=== PATIENT | male | born 1940 | race Caucasian/White ===

== ENCOUNTER 2016-12-02 11:12 | Observation (INO) | payer BC, MEDICARE ==
[~2016-12-02 11:12] MED LIST: ALBUTEROL SULF8.5 GM INH; ALBUTEROL0.83 MG/ML INH; BACTRIM DS TAB1 EAC1 PO; BACTRIM DS TAB1 EACH PO; CALCIUM + VITA1 EACH PO; COREG3.125 MG; COREG3.125 MG PO; COUMADIN PO; COUMADIN1 MG PO; COUMADIN10 MG PO; COUMADIN5 MG PO; COUMADIN6 MG; COUMADIN6 MG PO; COUMADIN7.5 MG PO; DUONEB 2.5-0.5 M3 ML IH; E-400400 UNIT; EQL FISH OIL 1,1 CA1 PO; FISH OIL 1,0001 CA; FISH OIL CONC1000 MG PO; FOLIC ACID0.4 MG PO; FOLIC ACID1 MG; FOLIC ACID1 MG PO; FUROSEMIDE40 M1 PO; GLIPIZIDE ER2.5 M1 PO; GLIPIZIDE XL2.5 MG; GLIPIZIDE XL2.5 MG PO; IPRATR-ALBUTEROL3 ML IH; KEFLEX500 MG PO; KEPPRA500 MG PO; LAMISIL250 MG PO; LASIX20 MG PO; LASIX80 MG; LASIX80 MG PO; LEVETIRACETAM1000 MG PO; LEXAPRO10 MG; LEXAPRO10 MG PO; LIPITOR20 MG; LIPITOR20 MG PO; LIPITOR40 MG PO; LISINOPRIL-HC; LISINOPRIL-HC PO; LISINOPRIL20 MG PO; LOVENOX40 MG/0.4 SQ; MONOJECT PREFIL10 M1 IJ; MULTIVITAMIN1 TAB; MULTIVITAMIN1 TAB PO; NAFCILLIN IV; NITROSTAT0.4 MG SL; NORCO 7.5/325 T1 TAB PO; OMEPRAZOLE20 M2 PO; OXYCODONE-APAP1 TAB; OXYCONTIN10 M1 PO; PHENYTOIN SODI; PHENYTOIN SODI100 MG PO; PHENYTOIN SODI200 MG PO; PRILOSEC20 MG; PRILOSEC20 MG PO; SENNA PLUS TAB1 EACH PO; SMZ-TMP DS 800-1 TAB; TERBINAFINE HC250 MG PO; VITAMIN C; VITAMIN C PO; VITAMIN D5000 UNIT PO; VITAMIN E; VITAMIN E PO; VITAMIN E1000 UNIT PO
[2016-12-02] MEDS ORDERED: BREO ELLIPTA 11 EAC1 INH (11:16)
[2016-12-02] MEDS ORDERED: PERCOCET 5-3251 EACH PO (11:16)
[2016-12-02] MEDS ORDERED: ROSUVASTATIN CA20 MG PO (11:17)
[2016-12-02] MEDS ORDERED: IPRAT-ALBUT 0.5-3 ML INH (11:17)
[2016-12-02] MEDS ORDERED: VITAMIN B-121000 MC1 PO (11:17)
[2016-12-02] MEDS ORDERED: SPIRIVA18 MC1 INH (11:17)
[2016-12-02] MEDS ORDERED: HYDROCODON-ACE1 EA16 PO (11:18)
[2016-12-02] MEDS ORDERED: FLOMAX0.4 M1 PO (11:18)
[2016-12-02] MEDS ORDERED: CYCLOBENZAPRINE10 M1 PO (11:18)
[2016-12-02] MEDS ORDERED: METOLAZONE10 M1 PO (11:19)
[2016-12-02] MEDS ORDERED: COREG3.125 M1 PO (11:19)
[2016-12-02] MEDS ORDERED: GLIPIZIDE ER2.5 MG PO (11:19)
[2016-12-02] MEDS ORDERED: POTASSIUM CHLO20 ME3 PO (11:19)
[2016-12-02] MEDS ORDERED: OMEPRAZOLE40 M2 PO (11:19)
[2016-12-02] MEDS ORDERED: ELIQUIS5 M1 PO (11:20)
[2016-12-02] MEDS ORDERED: PHENYTEK PO (11:20)
[2016-12-02] MEDS ORDERED: LASIX80 M1 PO (11:20)
[2016-12-02] MEDS ORDERED: DALIRESP500 MC1 PO (11:20)
[2016-12-02] MEDS ORDERED: LOSARTAN-HCTZ1 EAC5 PO (11:21)
[2016-12-02] MEDS ORDERED: KEPPRA500 M3 PO (11:21)
[2016-12-02] MEDS ORDERED: TEMAZEPAM PO (11:21)
[2016-12-02 12:06] LABS: BASO % 0.2 % (0-2); EOS % 2.7 % (0-7); EOSINOPHIL ABSOLUTE COUNT 0.2 tho/cmm (0.0-0.7); HCT-HEMATOCRIT 35.5 % (36.0-53.5); HGB-HEMOGLOBIN 12.3 gm/dl (13.5-17.0); IMMATURE GRANULOCYTES ABSOLUTE 0.01 tho/cmm (0-0.03); IMMATURE GRANULOCYTES PERCENT 0.1 % (0-0.3); LYMPH % 15.5 % (20-45); LYMPH ABSOLUTE COUNT 1.3 tho/cmm (0.8-4.5); MCH (MEAN CORPUSCULAR HGB) 33.4 pg (28.0-32.0); MCHC MEAN CORPUSCULAR HGB CONC 34.6 % (32.0-36.0); MCV (MEAN CELL VOLUME) 96.5 fl (82.0-96.0); MEAN PLATELET VOLUME 10.8 cmc (9.4-12.4); MONO % 7.7 % (0-12); MONOCYTE ABSOLUTE COUNT 0.6 tho/cmm (0.0-1.2); NEUTROPHIL ABSOLUTE COUNT 6.1 tho/cmm (1.6-8.0); NEUTROPHIL-AUTOMATED 6.1 tho/cmm (1.6-8.0); NEUTROPHILS % 73.8 % (40-80); PLATELET COUNT 188 tho/cmm (150-450); RED BLOOD COUNT 3.68 mil/cmm (4.40-5.70); RED CELL DISTRIBUTION WIDTH 12.7 % (12.4-16.4); WHITE BLOOD COUNT 8.3 tho/cmm (4.0-10.0)
[2016-12-02 12:18] LABS: ALBUMIN 3.5 g/dl (3.5-5.0); ALKALINE PHOSPHATASE 63 U/L (33-138); ALT/SGPT 36 U/L (12-78); ANION GAP 12 mmol/L (0-20); AST/SGOT 18 U/L (10-40); BILIRUBIN,TOTAL 0.3 mg/dl (0.0-1.5); BLOOD UREA NITROGEN 48 mg/dl (6-24); CARBON DIOXIDE-VENOUS 37 mmol/L (22-32); CHLORIDE 97 mmol/l (96-110); CREATININE 1.63 mg/dl (0.60-1.30); GLUCOSE 137 mg/dL (70-110); POTASSIUM 3.9 mmol/L (3.7-5.1); SODIUM 142 mmol/L (135-145); eGFR VALUE FOR BLACK 47 mL/Min
[2016-12-02 12:23] LABS: ESR-ERYTHROCYTE SED RATE 25 mm/hr (0-20)
[2016-12-02 13:43] LABS: URINE BILIRUBIN NEGATIVE (NEG); URINE BLOOD SMALL (NEG); URINE GLUCOSE (UA) NEGATIVE (NEG); URINE KETONE NEGATIVE (NEG); URINE LEUKOCYTE ESTERASE NEGATIVE (NEG); URINE NITRITE NEGATIVE (NEG); URINE PROTEIN NEGATIVE (NEG); URINE SPECIFIC GRAVITY 1.015 (1.003-1.030)
[2016-12-02 13:45] LABS: URINE APPEARANCE CLEAR; URINE COLOR YELLOW
[2016-12-02 14:01] LABS: URINE EPITHELIAL CELLS 0-1 /[HPF] (0-10); URINE RBC 0-1 /[HPF] (0-5); URINE WBC 0-2 /[HPF] (0-5)
[2016-12-03 06:23] LABS: ANION GAP 11 mmol/L (0-20); BLOOD UREA NITROGEN 42 mg/dl (6-24); CALCIUM 8.5 mg/dl (8.5-10.5); CARBON DIOXIDE-VENOUS 33 mmol/L (22-32); CHLORIDE 100 mmol/l (96-110); CREATININE 1.44 mg/dl (0.60-1.30); GLUCOSE 118 mg/dL (70-110); POTASSIUM 3.3 mmol/L (3.7-5.1); SODIUM 141 mmol/L (135-145); eGFR VALUE FOR BLACK 55 mL/Min
[2016-12-03] MEDS ORDERED: TYLENOL325 M2 PO (17:03)
[2016-12-03] MEDS ORDERED: DEXAMETHASONE4 M1 PO (17:05)
[2016-12-03] MEDS ORDERED: MIRALAX17 G2 PO (17:06)
[2016-12-03] MEDS ORDERED: COLACE100 M1 PO (17:06)
[2016-12-03] MEDS ORDERED: LINZESS145 MC1 PO (17:07)
== END 2016-12-03 17:45 ==
LOC: EDMED 11:12 → EMR2 13:06 → CAR1 14:38
PROVIDERS: Emergency Medicine; ADMIT Hospitalist
DX: M54.5 Low back pain (principal); M51.16 Intervertebral disc disorders with radiculopathy, lumbar region; E11.22 Type 2 diabetes mellitus with diabetic chronic kidney disease; I12.9 Hypertensive chronic kidney disease with stage 1 through stage 4 chronic kidney disease, or unspecified chronic kidney disease; N18.3 Chronic kidney disease, stage 3 (moderate); R33.9 Retention of urine, unspecified; E78.5 Hyperlipidemia, unspecified; J44.9 Chronic obstructive pulmonary disease, unspecified; I25.10 Atherosclerotic heart disease of native coronary artery without angina pectoris; G47.33 Obstructive sleep apnea (adult) (pediatric); Z86.718 Personal history of other venous thrombosis and embolism; K59.09 Other constipation; J90 Pleural effusion, not elsewhere classified; Z86.711 Personal history of pulmonary embolism; Z87.891 Personal history of nicotine dependence; Z88.8 Allergy status to other drugs, medicaments and biological substances; Z79.899 Other long term (current) drug therapy; Z95.5 Presence of coronary angioplasty implant and graft; Z98.890 Other specified postprocedural states
CPT/HCPCS: G0378; G8978-GP-CJ; G8979-GP-CJ; G8980-GP-CJ; G8987-GO-CI; G8988-GO-CH; G8989-GO-CI; J1100; J1815; J2270; J2405; J7030